=== PATIENT | male | born 1965 | race Caucasian/White ===

== ENCOUNTER 2016-11-22 15:20 | Emergency (ER) ==
[2016-11-22 15:29] VITALS: BP 131/69
[2016-11-22] MEDS ORDERED: XYLOCAINE-MPF 1% INJ ONE (15:38)
[2016-11-22] MEDS ORDERED: DIPHTHERIA/TETANUS ADULT IM ONE (15:38)
--- NOTE | 2016-11-22 16:37 | PROVIDER DOCUMENTATION ---
HPI-EENT General - General Chief Complaint: Mouth Pain Stated Complaint: WORK RELATED INJURY Time Seen by Provider: 11/22/16 15:31 Source: patient Allergies/Adverse Reactions: Patient Allergies Allergy/AdvReac Type Severity Reaction Status Date / Time No Known Allergies Allergy Verified 11/22/16 15:29 - History of Present Illness-EENT General Nature of Presenting Problem: Pt presents today from work after slipping and striking his mouth against a guard rail. No LOC or AMS. No neck pain. reports mouth laceration and chipped tooth. No active bleeding. No other injuries or complaints. EENT Location: reports: mouth, dental Quality of Pain: reports: aching Severity: reports: moderate Onset/Duration: reports: 1-3 hours ago Timing: reports: still present Prearrival Treatment: Initiated no prearrival treatment Associated Symptoms: reports: tooth pain Locality of Occurance: Work Similar Symptoms Previously?: No Recently seen or treated by another doctor?: No Review of Systems - Adult - REVIEW OF SYSTEMS - ADULT Constitutional: reports: no symptoms reported. denies: chills, fever Eyes: reports: no symptoms reported. denies: discharge, dry eyes Ears, Nose, Mouth & Throat: reports: see HPI, loose teeth, mouth/dental pain. denies: ear discharge, ear pain Cardiovascular: reports: no symptoms reported. denies: chest pain, edema Respiratory: reports: no symptoms reported. denies: chronic cough, cough Gastrointestinal: reports: no symptoms reported. denies: abdominal pain, hematemesis Genitourinary: reports: no symptoms reported. denies: dysuria, discharge Musculoskeletal: reports: no symptoms reported. denies: bone pain, back pain Integumentary: reports: no symptoms reported. denies: hives, hair loss Neurological: reports: no symptoms reported. denies: ataxia, dizziness/vertigo Psychiatric: reports: no symptoms reported. denies: anxiety, anti-depressant use Endocrine: reports: no symptoms reported Hematologic/Lymphatic: reports: no symptoms reported Allergic/Immunologic: reports: no symptoms reported All Other Systems: Reviewed and Negative Past History - Adult - PAST MEDICAL HISTORY-ADULT Review of Records: reports: Old Records Reviewed, Nursing Assessment Review, Medications Reviewed, Social history reviewed & non-contributory. Major Childhood Illnesses: reports: denies history Cardiovascular: reports: denies history Respiratory: reports: denies history Gastrointestinal: reports: denies history Obstetrical/Gynecological: reports: denies history Genitourinary: reports: denies history Musculoskeletal: reports: denies history Neurological: reports: denies history Endocrine/Immune: reports: denies history Other Conditions: reports: denies history Physical Exam- EENT - Physical Exam EENT Initial Vital Signs Reviewed: Yes General Appearance: appears well, alert, no apparent distress Eye Exam: bilateral eye: normal inspection, PERRL, EOMI Ear Exam: bilateral ear: auricle normal, canal normal, TM normal Eyes,Nose,Lips,Neck: 1 - laceration Nasal Exam: normal inspection Throat Exam: pharynx normal, dental tenderness Mouth,Throat: 1 - chipped/loose tooth 2 - laceration Neck: non-tender, full range of motion, supple, normal inspection. negative: limited range of motion, lymphadenopathy, meningismus Respiratory: chest non-tender, lungs clear, normal breath sounds, no pleuratic chest pain, no respiratory distress, no accessory muscle use Cardiovascular: normal peripheral pulses, regular rate, rhythm, no edema, no gallop, no JVD, no murmur Abdominal Exam: normal bowel sounds, non tender, soft, no organomegaly, no pulsatile mass Lymphatic: no adenopathy Back Exam: normal inspection, no CVA tenderness, no vertebral tenderness Extremity: normal range of motion, non-tender, normal gait, normal inspection, no pedal edema, no calf tenderness, normal capillary refill, pelvis stable Integumentary: normal color, normal turgor, warm/dry Neurologic: mental retardation aide II-XII nml as tested, no motor/sensory deficits Psych/Mental Status: AL, normal mood/affect, normal thought content, normal thought process, oriented x 3 Progress - PLAN OF CARE/RESULTS Progress/Plan/Lab Results: Orders Category Date Time Status Suture Tray Set-Up DIRECTED Care 11/22/16 15:38 Active Diphtheria/Tetanus Adult Med 11/22/16 15:38 Discontinued 0.5 ml IM .ONCE ONE Lidocaine 1% Pf [Xylocaine-Mpf 1%] Med 11/22/16 15:38 Discontinued See Dose Instructions INJ NOW ONE Vital Signs Temp Pulse Resp BP Pulse Ox 11/22/16 15:25 98.1 F 73 18 131/69 100 No Known Allergies Allergy (Verified 11/22/16 15:29) No Home Medications 11/22/16 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 They are currently arranging him a dental f/u. Procedures - LACERATION/WOUND REPAIR/FB Right Mouth Wound Length: 2cm Wound's Depth, Shape: superficial, irregular, flap Wound Explored/Foreign Body: clean Irrigated with Saline?: Yes Prepped with: Hibiclens, Kit Utilized, Sterile Drapes Applied Anesthetic: 1%, Lidocaine/Xylocaine Volume of Anesthetic (ml's): 6 Wound Debrided: minimal Wound Repaired with: Sutures Suture Size/Type: 5.0, Absorbable, Gut Number of Sutures: 6 Sterile Dressing Applied?: Yes Splint Applied?: No Sling Applied?: No Post Procedure Neurovascular Exam: N/A Procedure Comment: no complications Departure - Departure Time of Disposition Order: 16:35 DIAGNOSIS: Lip laceration Qualifiers: Encounter type: initial encounter Qualified Code(s): S01.511A - Laceration without foreign body of lip, initial encounter Chipped tooth Qualifiers: Encounter type: initial encounter Fracture type: closed Qualified Code(s): S02.5XXA - Fracture of tooth (traumatic), initial encounter for closed fracture Disposition: HOME 01 Certified Medical Emergency: Emergent Condition: Good Additional Instructions: Take medication as prescribed. Follow up with a dentist. ED Follow Up Instructions: You have been treated by a care provider in the Emergency Department. These instructions are being provided to you so you can have an understanding of how to care for yourself upon discharge. Upon discharge from the Emergency Department, you are responsible for making arrangements for follow-up care by a physician of your choice. Take all prescribed medications as directed. Return to the Emergency Department immediately for any new or worsening symptoms. You may call the Physician Referral phone number at [phone] to obtain a list of Physicians who are taking new patients. Prescriptions: Cephalexin [Keflex] 500 mg PO Q6HR #28 capsule Ibuprofen [Motrin] 800 mg PO Q8H PRN PRN #20 tablet PRN Reason: inflammation Benzocaine 20% Gel [Orajel Maximum St 20% Gel] 1 applicatn TOP 4XDAY PRN PRN #1 tube PRN Reason: Pain Attestation - Physician/ Mid-level Attestation Patient care was provided by Mid-level provider (PALLIATIVE CARE SPECIALIST/PA):: Yes Mid-level provider:: Drake Braxton Mid-level documentation review:: The Mid-level provider documentation, treatment plan and medical decision making was reviewed by the physician who agrees with all treatment and medical decision making by the MLP.
== END 2016-11-22 16:59 | disposition home or self-care (01) ==
LOC: P.ED 15:20
DX: S01.511A Laceration without foreign body of lip, initial encounter (principal); S02.5XXA Fracture of tooth (traumatic), initial encounter for closed fracture; K08.89 Other specified disorders of teeth and supporting structures; Z23 Encounter for immunization; W22.09XA Striking against other stationary object, initial encounter
CPT/HCPCS: 90471; 90714